=== PATIENT | female | born 1955 | race Caucasian/White ===

== ENCOUNTER → 2017-03-08 | Outpatient (CLI) | payer OTHER | LOC: CIMAGING 16:24 | PROVIDERS: ATTEND Internal Medicine | DX: J98.6 Disorders of diaphragm (principal) | CPT/HCPCS: 71046-PO ==

== ENCOUNTER → 2017-12-30 | Outpatient (CLI) | payer OTHER | LOC: CIMAGING 11:26 | DX: R10.2 Pelvic and perineal pain (principal); Z78.0 Asymptomatic menopausal state | CPT/HCPCS: 76830-PO ==

== ENCOUNTER → 2018-08-02 | Outpatient (CLI) | payer OTHER | LOC: CIMAGING 11:35 ==